=== PATIENT | female | born 1935 | race Two or more races ===

== ENCOUNTER 2017-06-15 06:17 | Emergency (ER) | payer MEDICARE, OTHER ==
[~2017-06-15] VITALS: Ht 162.6 cm; Wt 59.0 kg
[2017-06-15] MEDS ORDERED: AMLODIPINE BESYL5 MG ORAL (06:22)
[2017-06-15] MEDS ORDERED: ATORVASTATIN CA20 MG ORAL (06:22)
[2017-06-15 06:23] VITALS: BP 127/63
[2017-06-15] MEDS ORDERED: ASPIRIN81 MG ORAL (06:23)
[2017-06-15] MEDS ORDERED: PROLIA60 MG/1 ML SUBQ ×2 (06:23→08:16)
[2017-06-15] MEDS ORDERED: NEXIUM40 MG ORAL (06:23)
[2017-06-15] MEDS ORDERED: METOPROLOL TART25 MG ORAL (06:23)
[2017-06-15] MEDS ORDERED: LOVAZA1 GM ORAL (06:23)
[2017-06-15] MEDS ORDERED: GLUCOSAMINE1000 M1 PO (06:23)
[2017-06-15] MEDS ORDERED: CALCIUM 600 +1 EAC2 PO (06:23)
[2017-06-15] MEDS ORDERED: BENICAR40 MG ORAL (06:23)
[2017-06-15] MEDS ORDERED: KLONOPIN0.5 MG ORAL (06:23)
[2017-06-15] MEDS ORDERED: CREON DR 24,001 EACH PO (06:23)
--- NOTE | 2017-06-15 06:56 | Emergency Room Report ---
History of Present Illness General Chief Complaint: Chest Pain Source: Patient, EMS Present Illness HPI 81-year-old female, a Farsi speaking, interpretation provided by [employer] [place] ID #[id number], with pmhx of HTN, p/w chest pain for one day. Chest pain started while at night, states that she took a Tylenol which helped the pain, however pain started again around 4 AM and has since resolved upon coming to the emergency room. Localized to left of chest/substernal area, no radiation to back or other areas, sharp in nature, gradual in onset, lasted 10-15 minutes min , 2 episodes. Occurred on rest. Denies SOB. Denies palpitations, diaphoresis, n /v. This is the first occurrence of chest pain. Denies fever, chills, cough, abd pain. Denies trauma. Patient also states that 5 years ago she had an MRI which showed "spots in the brain", so patient states that she takes medication for that and has since had no problems (Later, daughter states pt with mini strokes in the past) Patient denying any known malignancy Denies any history of clots in her legs or lungs, no recent surgeries and no immobilization Daughter came to emergency room, states that patient has chronic arthritis, just went to physical therapy yesterday, always has chest neck and joint pain Daughter also states that patient went to primary care doctor and had a recent stress test done on June 06 which was negative No history of angiogram Denies any history of malignancy Allergies: Coded Allergies: No Known Allergies (Unverified , 06/15/17) Patient History Past Medical History: see triage record Past Surgical History: none Pertinent Family History: none Now: No Reviewed Nursing Documentation: PMH: Agreed, PSxH: Agreed Nursing Documentation-PMH Hx Hypertension: Yes Review of Systems All Other Systems: negative except mentioned in HPI Physical Exam Vital Signs Date Time Temp Pulse Resp B/P (MAP) Pulse Ox O2 Delivery O2 Flow Rate FiO2 06/15/17 06:10 97.7 63 12 98 Room Air 06/15/17 06:23 127/63 Sp02 EP Interpretation: reviewed, normal General Appearance: normal inspection, well appearing, no apparent distress, alert, GCS 15, non-toxic Head: normocephalic, atraumatic Eyes: bilateral eye normal inspection, bilateral eye PERRL, bilateral eye EOMI ENT: normal ENT inspection, normal pharynx, normal voice, moist mucus membranes Neck: normal inspection, full range of motion, supple Respiratory: normal inspection, lungs clear, normal breath sounds, no respiratory distress, no retraction, no wheezing, speaking full sentences, chest symmetrical Cardiovascular #1: normal inspection, regular rate, rhythm, no edema, normal capillary refill Cardiovascular #2: 2+ radial (R), 2+ radial (L) Gastrointestinal: normal inspection, non tender, soft, non-distended, no guarding Musculoskeletal: normal inspection, back normal, normal range of motion, non- tender, other - No calf swelling or tenderness bilaterally Neurologic: normal inspection, alert, oriented x3, responsive, motor strength/ tone normal, sensory intact, normal gait, speech normal Psychiatric: normal inspection, judgement/insight normal, memory normal Skin: normal inspection, normal color, no rash, warm/dry, well hydrated, normal turgor Medical Decision Making Diagnostic Impression: Primary Impression: Chest pain ER Course 81-year-old female with pmhx of hypertension p/w CP DDX: ACS vs. CHF vs. pneumonia vs. gastritis/GERD vs. pneumothorax PE on differential however at this time there are other more likely diagnoses. Patient experiencing no symptoms at this time, not short of breath, not tachycardic or hypoxic Plan: IV access, obtain labs including troponin, EKG, CXR Patient was already given aspirin by EMS, 325 mg ER course: Patient has remained on a monitor, HD stable, chest pain has resolved upon coming to the emergency room. patient had remained CP free vitals signed normal no dyspnea trop from 0.06 to 0.04 Disposition: Patient to be DCed to home She had recent stress test that was neg, also pt trop down trending. no sx in ED. cp reproducible as well, ?musculoskeltal will DC home very strict return prec discussed w/ patient and daughter to come back to ED if exp CP/SOB/nv. otherwise fu with PMD in 3 days Please note that this Emergency Department Report was dictated using [employer] technology software, occasionally this can lead to erroneous entry secondary to interpretation by the dictation equipment. EKG Diagnostic Results EP Interpretation: Yes Rate: normal Rhythm: NSR ST Segments: Q waves in 1 and aVL ASA given to patient: Yes Rhythm Strip EP Interpretation: Yes Rate: 61 Rhythm: NSR, no PVCs, no ectopy Chest X-ray CXR: Ordered: Yes 1 view Indication: Chest pain EP interpretation: Yes Interpretation: No consolidation, no effusion, no PTX, no acute cardiopulmonary disease Impression: No acute disease Electronically signed by Henrietta Howard MD Laboratory Tests Test 06/15/17 06:20 06/15/17 09:18 White Blood Count 5.4 K/UL (4.8-10.8) Red Blood Count 4.22 M/UL (4.20-5.40) Hemoglobin 13.3 G/DL (12.0-16.0) Hematocrit 38.4 % (37.0-47.0) Mean Corpuscular Volume 91 FL (80-99) Mean Corpuscular Hemoglobin 31.6 PG (27.0-31.0) H Mean Corpuscular Hemoglobin Concent 34.7 G/DL (32.0-36.0) Red Cell Distribution Width 10.9 % (11.6-14.8) L Platelet Count 258 K/UL (150-450) Mean Platelet Volume 6.0 FL (6.5-10.1) L Neutrophils (%) (Auto) 37.5 % (45.0-75.0) L Lymphocytes (%) (Auto) 48.0 % (20.0-45.0) H Monocytes (%) (Auto) 7.6 % (1.0-10.0) Eosinophils (%) (Auto) 5.1 % (0.0-3.0) H Basophils (%) (Auto) 1.8 % (0.0-2.0) Sodium Level 145 MMOL/L (136-145) Potassium Level 3.3 MMOL/L (3.5-5.1) L Chloride Level 111 MMOL/L (98-107) H Carbon Dioxide Level 23 MMOL/L (21-32) Anion Gap 11 mmol/L (5-15) Blood Urea Nitrogen 12 mg/dL (7-18) Creatinine 0.6 MG/DL (0.55-1.30) Estimate Glomerular Filtration Rate mL/min (>60) Glucose Level 91 MG/DL (74-106) Calcium Level 8.6 MG/DL (8.5-10.1) Total Bilirubin 0.7 MG/DL (0.2-1.0) Aspartate Amino Transferase (AST) 17 U/L (15-37) Alanine Aminotransferase (ALT) 20 U/L (12-78) Alkaline Phosphatase 37 U/L (46-116) L Total Creatine Kinase 59 U/L (26-308) Creatine Kinase MB 1.4 NG/ML (0.0-3.6) Creatine Kinase MB Relative Index 2.3 Troponin I 0.065 ng/mL (0.000-0.056) 0.005 ng/mL (0.000-0.056) Pro-B-Type Natriuretic Peptide 110 pg/mL (0-125) Total Protein 6.9 G/DL (6.4-8.2) Albumin 3.4 G/DL (3.4-5.0) Globulin 3.5 g/dL Albumin/Globulin Ratio 1.0 (1.0-2.7) Last Vital Signs Date Time Temp Pulse Resp B/P (MAP) Pulse Ox O2 Delivery O2 Flow Rate FiO2 06/15/17 06:23 63 12 Room Air 06/15/17 06:23 97.7 127/63 95 Disposition: HOME, SELF-CARE Condition: Improved Referrals: NOT CHOSEN HOLLI/,REFERRING (PCP) Henrietta Howard M.D. Jun 15, 2017 06:56
[2017-06-15 07:14] LABS: BASOPHILS % (AUTO) 1.8 % (0.0-2.0); EOSINOPHILS % (AUTO) 5.1 % (0.0-3.0); MEAN CORPUSCULAR HEMOGLOBIN 31.6 PG (27.0-31.0); MEAN CORPUSCULAR HGB CONC 34.7 G/DL (32.0-36.0); MEAN CORPUSCULAR VOLUME 91 FL (80-99); MONOCYTES % (AUTO) 7.6 % (1.0-10.0); NEUTROPHILS % (AUTO) 37.5 % (45.0-75.0); PLATELET COUNT 258 K/UL (150-450); RED BLOOD COUNT 4.22 M/UL (4.20-5.40); RED CELL DISTRIBUTION WIDTH 10.9 % (11.6-14.8); WHITE BLOOD COUNT 5.4 K/UL (4.8-10.8)
[2017-06-15 07:37] LABS: ALANINE AMINOTRANSFERASE 20 U/L (12-78); ANION GAP 11 mmol/L (5-15); ASPARTATE AMINO TRANSFERASE 17 U/L (15-37); CALCIUM 8.6 MG/DL (8.5-10.1); CARBON DIOXIDE 23 MMOL/L (21-32); CHLORIDE 111 MMOL/L (98-107); CKMB 1.4 NG/ML (0.0-3.6); CREATININE 0.6 MG/DL (0.55-1.30); POTASSIUM 3.3 MMOL/L (3.5-5.1); SODIUM 145 MMOL/L (136-145); TOTAL PROTEIN 6.9 G/DL (6.4-8.2)
[2017-06-15 07:40] VITALS: BP 143/59
[2017-06-15] MEDS ORDERED: ATORVASTATIN CA10 MG ORAL (08:16)
[2017-06-15 09:10] VITALS: BP 138/66
[2017-06-15 10:19] VITALS: BP 122/57
[2017-06-15 10:35] VITALS: BP 138/69
--- NOTE | 2017-06-15 12:03 | Diagnostic Imaging Report ---
Indication: Chest pain Comparison: None A single view chest radiograph was obtained. Findings: Basilar reticular densities noted with a normal heart size. Aorta is ectatic. Bones are sure.. Impression: Mild left basal atelectasis.
--- NOTE | 2017-06-19 12:10 | Cardiology Report ---
APPROVED REPORT EKG Measurement Heart [id number] Sinus rhythm with premature atrial complexes Nonspecific ST abnormality Abnormal ECG
== END 2017-06-15 11:01 | disposition home or self-care (01) ==
LOC: EDBD 06:17 → EMR 06:41
DX: R07.89 Other chest pain (principal); I10 Essential (primary) hypertension
CPT/HCPCS: 36415; 71010; 80053; 82550; 82553; 83880; 84484; 85025; 93005; 99284